=== PATIENT | female | born 1995 | race Caucasian/White ===

== ENCOUNTER 2017-02-11 10:02 | Emergency (ER) | payer OTHER ==
[2017-02-11 10:08] VITALS: BP 136/103; PULSE 97; RESP 18; TEMP 98.2; O2SAT 99
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
== END 2017-02-11 11:34 | disposition home or self-care (01) ==
DX: Z04.1 Encounter for examination and observation following transport accident (principal); V47.5XXA Car driver injured in collision with fixed or stationary object in traffic accident, initial encounter; Y92.410 Unspecified street and highway as the place of occurrence of the external cause; Y99.8 Other external cause status; Y93.89 Activity, other specified